=== PATIENT | female | born 1980 | race Caucasian/White ===

== ENCOUNTER 2017-02-09 21:01 | Emergency (ER) | payer BC, OTHER ==
[~2017-02-09] VITALS: Ht 167.6 cm; Wt 83.0 kg
[~2017-02-09 21:01] MED LIST: ALBU6.7H INH; ALPR1 PO; ASPI325T PO; CETI10 PO; FENO160T PO; KLOR8TAB PO; LISI20 PO; MAG GLYCINATE PO; PRIL20TA2 PO; VITATAB43 PO; ZOFR4TAB3 SL; [UNRECOGNIZED DRUG - CODE] PO
[2017-02-09 21:10] VITALS: BP 130/87; PULSE 107; RESP 18; TEMP 99.2; O2SAT 97
[2017-02-09] MEDS ORDERED: XANA1TAB2 PO (21:38)
[2017-02-09] MEDS ORDERED: OMEP40CA2 PO (21:38)
[2017-02-09] MEDS ORDERED: ASPI1TAB69 PO (21:38)
[2017-02-09] MEDS ORDERED: LISI-515 PO (21:38)
[2017-02-09] MEDS ORDERED: ASPI81CH CHEW (21:38)
[2017-02-09] MEDS ORDERED: METO25TA3 PO ×2 (21:42)
[2017-02-09] MEDS ORDERED: KETOROLAC TROMETHAMINE 30 MG/ML (IVP) VIAL IV PUSH ONE (21:45)
[2017-02-09] MEDS ORDERED: PROCHLORPERAZINE INJ 10 MG/2 ML VIAL IV PUSH ONE (21:45)
[2017-02-09] MEDS ORDERED: SODIUM CHLOR 0.9% 1000 ML INJ 1,000 ML IV ONE (21:45)
--- NOTE | 2017-02-09 21:52 | PD ---
HPI Chief Complaint: Headache Time Seen by Provider: 21:33 Travel History International Travel<30 days: No Contact w/Intl Traveler<30days: No Traveled to known affect area: No History of Present Illness HPI This 36-year-old female is complaining of headache. She's been having a headache since earlier today. She has a history of migraine headaches. She says that about 10 days ago she fell palpable boarding and has had some pain on the right side of her neck since then. She did not have severe pain after fall. She has taken some Treximet without relief. She does feel nauseated. She has photophobia. She says the pain is quite severe. There is no no numbness tingling or paresthesias PFSH Past Medical History Autoimmune Disease: No Anxiety: Yes Heart Rhythm Problems: No Cancer: No Cardiovascular Problems: Yes High Cholesterol: Yes Congestive Heart Failure: No Cerebrovascular Accident: No Endocrine: No Gastrointestinal Disorders: Yes GERD: Yes Genitourinary: No Hypertension: Yes Immune Disorder: No Musculoskeletal: No Neurologic: Yes Psychiatric: Yes Reproductive: No Respiratory: Yes Migraines: Yes Pneumonia: Yes Seizures: No Triglycerides - High: Yes ?: Not LMP: 10/2016 : 0 Past Surgical History Abdominal Surgery: Yes (gallbladder removed) Cholecystectomy: Yes Gynecologic Surgery: Yes (LAPROSCOPY, CYSTOSCOPY) Tonsillectomy: Yes Family History Family Hypercholesterolemia: Yes (PARENTS) Social History Alcohol Use: Yes ("VERY RARELY") Tobacco Use: No Substance Use: No Allergies-Medications (Allergen,Severity, Reaction): Coded Allergies: Labetalol (Unverified Allergy, Severe, RASH, 02/09/17) Verapamil (Verified Allergy, Severe, Rash, 02/09/17) Reported Meds & Prescriptions Reported Meds & Active Scripts Active Reported Metoprolol Tartrate 25 Mg Tab 12.5 Mg PO HS Metoprolol Tartrate 25 Mg Tab 25 Mg PO AC BREAKFAST Aspirin 81 Mg Chew 162 Mg CHEW DAILY Lisinopril 20 Mg Tab 20 Mg PO DAILY Omeprazole 40 Mg Cap 40 Mg PO DAILY Xanax (Alprazolam) 1 Mg Tab 1 Mg PO HS PRN Review of Systems General / Constitutional: No: Fever, Chills Eyes: No: Diploplia, Blurred Vision HENT: No: Headaches, Vertigo Cardiovascular: No: Chest Pain or Discomfort, Palpitations Respiratory: No: Cough, Shortness of Breath Gastrointestinal: Positive: Nausea, No: Vomiting Genitourinary: No: Urgency, Frequency Musculoskeletal: No: Myalgias, Arthralgias Skin: No Rash, No Itching Neurologic: Positive: Headache Hematologic/Lymphatic: No: Easy Bruising Physical Exam Narrative GENERAL: Well-developed female. SKIN: Focused skin assessment warm/dry. HEAD: Atraumatic. Normocephalic. EYES: Pupils equal and round. No scleral icterus. No injection or drainage. Does have photophobia ENT: No nasal bleeding or discharge. Mucous membranes pink and moist. NECK: Trachea midline. No JVD. CARDIOVASCULAR: Regular rate and rhythm. No murmur appreciated. RESPIRATORY: No accessory muscle use. Clear to auscultation. Breath sounds equal bilaterally. GASTROINTESTINAL: Abdomen soft, non-tender, nondistended. Hepatic and splenic margins not palpable. MUSCULOSKELETAL: No obvious deformities. No clubbing. No cyanosis. No edema. NEUROLOGICAL: Awake and alert. No obvious cranial nerve deficits. Motor grossly within normal limits. Normal speech. PSYCHIATRIC: Appropriate mood and affect; insight and judgment normal. Data Data Last Documented VS Vital Signs Date Time Temp Pulse Resp B/P Pulse Ox O2 Delivery O2 Flow Rate FiO2 02/09/17 22:30 18 02/09/17 22:05 97 147/77 97 Room Air 02/09/17 21:10 99.2 Orders Sodium Chlor 0.9% 1000 Ml Inj (Ns 1000 M (02/09/17 21:45) Prochlorperazine Inj (Compazine Inj) (02/09/17 21:45) Ketorolac Inj (Toradol Inj) (02/09/17 21:45) [facility] Medical Decision Making Medical Screen Exam Complete: Yes Emergency Medical Condition: Yes Medical Record Reviewed: Yes Differential Diagnosis Differential includes migraine headache, tension headache, Narrative Course She's been given IV fluids and Compazine and Toradol with improvement. She is stable for discharge Diagnosis Primary Impression: Migraine headache Qualified Code: G43.909 - Migraine without status migrainosus, not intractable , unspecified migraine type Disposition: 01 DISCHARGE HOME Condition: Stable Frankie Sesay MD Feb 09, 2017 21:52
[2017-02-09 22:05] VITALS: BP 147/77; PULSE 97; RESP 20; O2SAT 97
[2017-02-09 22:36] VITALS: BP 114/71; PULSE 82; RESP 18; O2SAT 98
== END 2017-02-09 22:56 | disposition home or self-care (01) ==
LOC: PHED 21:01
DX: G43.909 Migraine, unspecified, not intractable, without status migrainosus (principal); R11.0 Nausea; I10 Essential (primary) hypertension; E78.00 Pure hypercholesterolemia, unspecified
CPT/HCPCS: 96361; 96374; 96375; 99283; J0780; J1885; J7030